=== PATIENT | male | born 1975 | race Caucasian/White ===

== ENCOUNTER 2021-02-02 00:24 | Emergency (ER) | payer OTHER ==
[2021-02-02 00:49] VITALS: TEMP 98.2; BMI 27.1
[2021-02-02] MEDS ORDERED: SODIUM CHLORIDE 0.9% 500 ML INFUS.BAG IV ONE (02:27)
[2021-02-02] MEDS ORDERED: METOCLOPRAMIDE HCL INJECTION 10 MG/2 ML VIAL IVPB ONE (02:28)
[2021-02-02] MEDS ORDERED: MECLIZINE HCL 25 MG TABLET (FP) PO ONE (02:28)
[2021-02-02] MEDS ORDERED: METOCLOPRAMIDE HCL INJECTION 10 MG/2 ML VIAL ONE (02:44)
[2021-02-02] MEDS ORDERED: MECLIZINE HCL 12.5 MG TABLET ONE (02:44)
[2021-02-02 03:01] LABS: BASO % 0.8 % (0-2.0); EOS % 0.2 % (0-4.5); HEMOGLOBIN 14.4 GM/dL (11.7-16.9); LYMPH % 11.8 % (8-40); MCHC 33.4 g/dl (32.0-35.9); MEAN CELL VOLUME 86.8 fl (80-96); MONO % 3.6 % (3.8-10.2); NEUT % 83.6 % (42.8-82.8); PLATELET COUNT 322 10^3/uL (134-434); RBC 4.95 M/mm3 (4.00-5.60); RDW 13.6 % (11.9-15.9); WHITE BLOOD COUNT 11.1 K/mm3 (4.0-10.0)
[2021-02-02 03:23] LABS: CHLORIDE 104 mmol/L (98-107); SODIUM 138 mmol/L (136-145)
[2021-02-02 03:25] LABS: CALCIUM 9.9 mg/dL (8.5-10.1)
[2021-02-02 03:26] LABS: ALBUMIN 3.8 g/dl (3.4-5.0); ANION GAP 4 MMOL/L (8-16); BLOOD UREA NITROGEN 19.4 mg/dL (7-18); CO2 30 mmol/L (21-32); GLUCOSE,RANDOM 149 mg/dL (74-106); MAGNESIUM 2.4 mg/dL (1.8-2.4)
[2021-02-02 03:28] LABS: SGPT/ALT 45 U/L (13-61)
[2021-02-02 03:29] LABS: CREATININE 1.1 mg/dL (0.55-1.3); SGOT/AST 20 U/L (15-37)
[2021-02-02 03:30] LABS: BILIRUBIN,TOTAL 0.3 mg/dL (0.2-1); TOT PROT 7.1 g/dl (6.4-8.2)
[2021-02-02 03:31] LABS: ALK PHOS 52 U/L (45-117)
[2021-02-02 04:22] VITALS: BP 134/72; PULSE 85
== END 2021-02-02 04:22 | disposition home or self-care (01) ==
LOC: JER 00:24
PROC: 3E033GC Introduction of Other Therapeutic Substance into Peripheral Vein, Percutaneous Approach (ICD-10-PCS; principal; 2021-02-02)
DX: R42 Dizziness and giddiness (principal)
CPT/HCPCS: 36415; 70450-TC; 80053; 82550; 82553; 82962; 83735; 84484; 85025; 93005; 93010; 99285-25